=== PATIENT | female | born 1970 | race Caucasian/White ===

== ENCOUNTER → 2016-03-02 | Outpatient (CLI) | payer OTHER ==
[~2016-03-02] MED LIST: HYDR-757 PO; LITH300C PO; LORA0.5T PO; TRIA0.2581 PO; ZOLP10TA5 PO
--- OUTSIDE RECORDS SUMMARY | 2016-03-02 12:11 | XMS REPORT | Continuity of Care Document ---
Author Author [facility] Organization [facility] Address Unknown Phone Unavailable Care Team Providers [facility] Interpretive Ranger Name Role Phone No Pcp, Na PCP Unavailable Source Comments Some departments are not documenting in the electronic medical record. If you do not see the information that you expected, contact Release of Information in the Health Information Management department at [phone] for further assistance in locating additional records.[facility] Active Allergies and Adverse Reactions No Known Allergies Current Medications Prescription Sig. Disp. Refills Start End Date Status Date pravastatin (PRAVACHOL) Take 40 mg by mouth Active 40 mg tablet daily. levothyroxine (SYNTHROID) Take 25 mcg by mouth Active 25 mcg tablet daily. docusate (COLACE) 100 mg Take 100 mg by mouth Active capsule twice daily. FLUoxetine (PROZAC) 20 mg Take 20 mg by mouth Active capsule daily. gabapentin (NEURONTIN) Take 400 mg by mouth four Active 400 mg capsule times daily. gemfibrozil (LOPID) 600 Take 600 mg by mouth Active mg tablet daily. lithium carbonate SR Take 900 mg by mouth at Active (LITHOBID) 450 mg tablet bedtime daily. lurasidone 120 mg tab Take by mouth at bedtime Active daily. methocarbamol (ROBAXIN) Take 750 mg by mouth Active 750 mg tablet three times daily as needed. vitamins, multiple cap Take 1 Cap by mouth Active daily. omeprazole DR(+) Take 20 mg by mouth twice Active (PRILOSEC) 20 mg capsule daily. propranolol (INDERAL) 10 Take 10 mg by mouth twice Active mg tablet daily. traZODone (DESYREL) 100 Take 100 mg by mouth at Active mg tablet bedtime daily. zolpidem (AMBIEN) 10 mg Take 10 mg by mouth at Active tablet bedtime as needed. amLODIPine (NORVASC) 10 Take 10 mg by mouth Active mg tablet daily. HYDROcodone-acetaminophen Take 1 Tab by mouth every Active (+) (VICODIN) 10-325 mg 6 hours as needed. tablet ASPIRIN PO Take 81 mg by mouth Active daily. coQ10 (ubiquinol) 100 mg Take by mouth daily. Active cap fish oil /omega-3 fatty Take 1 Cap by mouth Active acids (SEA-OMEGA) daily. 340/1000 mg capsule Active Problems Problem Noted Date Multiple thyroid nodules 04/02/2014 Hypercalcemia 12/03/2013 Hyperparathyroidism (HCC) 12/03/2013 Social History Tobacco Use Types Packs/Day Years Used Date Current Every Day Smoker Cigarettes 1 30 Smokeless Tobacco: Never Used Tobacco Cessation: Ready to Quit: Yes; Counseling Given: Yes Comments: Counseling given 12.03.13 Alcohol Use Drinks/Week oz/Week Comments No Last Filed Vital Signs Vital Sign Reading Time Taken Blood Pressure 100/68 05/27/2014 10:02 AM CDT Pulse 74 05/27/2014 10:02 AM CDT Temperature 37.2 C (99 F) 04/05/2014 11:02 AM PAPER SAMPLE CLERK Respiratory Rate - - Height 1.664 m (5' 5.5") 05/27/2014 10:02 AM CDT Weight 73.483 kg (162 lb) 05/27/2014 10:02 AM CDT Body Mass Index 26.54 05/27/2014 10:02 AM CDT Oxygen Saturation 94% 04/05/2014 12:45 PM PAPER SAMPLE CLERK Plan of Care Health Maintenance Due Date Last Done Comments Physical (Comprehensive) 12/21/1975 Exam Pertussis Vaccine 12/21/1979 Tetanus Vaccine 1985 Cervical Cancer Screening 1989 Breast Cancer Screening 2008 Influenza Vaccine 10/30/2015 Results from Last 3 Months Not on file
--- NOTE | 2016-03-03 19:29 | Diagnostic Imaging Report ---
Bilateral screening mammogram The current study was also evaluated with a Computer Aided Detection (CAD) system. Indication: Screening. No current complaints stated on the questionnaire. COMPARISON: 12/13/14. FINDINGS: The breasts are composed of scattered fibroglandular densities. There are scattered benign-appearing calcifications. Allowing for technique and positional differences, no suspicious change is seen. IMPRESSION: No significant change. ACR BI-RADS Category 2: Benign findings. Result letter will be mailed to the patient. Note: At least 10% of breast cancer is not imaged by mammography. Dictated by: Dictated on workstation # [id number]
== END ==
LOC: RAD 12:08
PROVIDERS: ATTEND Nurse Practitioner
DX: Z12.31 Encounter for screening mammogram for malignant neoplasm of breast (principal)

== ENCOUNTER → 2017-03-04 | Outpatient (CLI) | payer OTHER ==
--- NOTE | 2017-03-07 09:34 | Diagnostic Imaging Report ---
INDICATION: Screening. COMPARISON: 03/02/2016, 12/13/2014, and 03/12/2014. TECHNIQUE: Screening digital mammography was performed bilaterally with a Computer Aided Detection (CAD) system. FINDINGS: There is a moderate amount of residual fibroglandular tissue bilaterally. There is an unchanged nodular density in the upper outer right breast. There is also a lymph node in the left axilla. There are scattered fibroglandular densities. There is no new dominant mass, spiculated lesion, or suspicious calcification identified. The skin, nipples, and axillae are unremarkable. IMPRESSION: Benign findings. ACR BI-RADS Category 2: Benign findings. Result letter will be mailed to the patient. Note: At least 10% of breast cancer is not imaged by mammography. Dictated by: Dictated on workstation # [id number]
== END ==
LOC: RAD 13:15
PROVIDERS: ATTEND Nurse Practitioner
DX: Z12.31 Encounter for screening mammogram for malignant neoplasm of breast (principal)
CPT/HCPCS: 77067

== ENCOUNTER 2017-08-03 09:00 | Emergency (ER) | payer OTHER ==
[~2017-08-03] VITALS: Ht 165.1 cm; Wt 64.9 kg
--- OUTSIDE RECORDS SUMMARY | 2017-08-03 09:06 | XMS REPORT | Clinical Summary ---
Author Author [facility] Organization [facility] Address Unknown Phone Unavailable Care Team Providers [employer] Susp[employer] Aide Name Role Phone Abigail Starr MD Unavailable Joseph Mederos PA-C Unavailable No Pcp, Na PCP Unavailable Petra Goodman RN Unavailable Unavailable Kerri Puente RN Unavailable Unavailable Iza Finnegan RN Unavailable Unavailable Source Comments Some departments are not documenting in the electronic medical record. If you do not see the information that you expected, contact Release of Information in the Health Information Management department at [phone] for further assistance in locating additional records.[facility] Allergies No Known Allergies Current Medications Prescription Sig. [...] nodules 04/02/2014 Hypercalcemia 12/03/2013 Hyperparathyroidism (HCC) 12/03/2013 Family History Medical History Relation Name Comments Cancer-Colon Mother Cancer-Ovarian Mother Heart Attack Mother High Cholesterol Mother Relation Name Status Comments Brother Alive Brother Alive Father Mother Sister Alive Social History Tobacco Use Types Packs/Day Years Used Date Current Every Day Smoker Cigarettes 1 30 Smokeless Tobacco: Never Used Tobacco Cessation: Ready to Quit: Yes; Counseling Given: Yes Comments: Counseling given 10.6.14 Alcohol Use Drinks/Week oz/Week Comments No Sex Assigned at Date Recorded Not on file Last Filed Vital Signs Vital Sign Reading Time Taken Blood Pressure 100/68 05/27/2014 10:02 AM CDT Pulse 74 05/27/2014 10:02 AM CDT Temperature 37.2 C (99 F) 04/05/2014 11:02 AM HOT PATCHER Respiratory Rate - - Oxygen Saturation 94% 04/05/2014 12:45 PM HOT PATCHER Inhaled Oxygen - - Concentration Weight 73.5 kg (162 lb) 05/27/2014 10:02 AM CDT Height 166.4 cm (5' 5.5") 05/27/2014 10:02 AM CDT Body Mass Index 26.55 05/27/2014 10:02 AM CDT Plan of Treatment Health Maintenance Due Date Last Done Comments PHYSICAL (COMPREHENSIVE) 12/21/1975 EXAM PERTUSSIS VACCINE 12/21/1979 HIV SCREENING 12/21/1983 TETANUS VACCINE 1985 CERVICAL CANCER SCREENING 1998 BREAST CANCER SCREENING 2008 INFLUENZA VACCINE 11/28/2017 Results Not on filefrom Last 3 Months
[2017-08-03] MEDS ORDERED: NS 250 ML (IVPB) BAG IV ONE (09:45)
[2017-08-03] MEDS ORDERED: IOHEXOL 350 MG/ML 100 ML (OMNIPAQUE 350) VIAL IV ONE (09:45)
[2017-08-03 09:59] LABS: BASOPHILS % (AUTO) 0 % (0-10); EOSINOPHILS # (AUTO) 0.2 10^3/uL (0.0-0.3); EOSINOPHILS % (AUTO) 2 % (0-10); HEMATOCRIT 40 % (35-52); HEMOGLOBIN 13.6 G/DL (11.5-16.0); LYMPHOCYTES # (AUTO) 1.9 X 10^3 (1.0-4.0); LYMPHOCYTES % (AUTO) 19 % (12-44); MEAN CORPUSCULAR HEMOGLOBIN 31 PG (25-34); MEAN CORPUSCULAR HGB CONC 34 G/DL (32-36); MEAN CORPUSCULAR VOLUME 91 FL (80-99); MEAN PLATELET VOLUME 10.3 FL (7.4-10.4); MONOCYTES # (AUTO) 0.7 X 10^3 (0.0-1.0); MONOCYTES % (AUTO) 8 % (0-12); NEUTROPHILS % (AUTO) 71 % (42-75); PLATELET COUNT 245 10^3/uL (130-400); WHITE BLOOD COUNT 9.9 10^3/uL (4.3-11.0)
[2017-08-03] MEDS ORDERED: fentaNYL INJECTION 100 MCG/2 ML AMP IVP ONE (10:00)
[2017-08-03 10:16] LABS: ALBUMIN 4.3 GM/DL (3.2-4.5); BILIRUBIN,TOTAL 0.2 MG/DL (0.1-1.0); CALCIUM 10.5 MG/DL (8.5-10.1); CREATININE SERUM 1.03 MG/DL (0.60-1.30); POTASSIUM 4.6 MMOL/L (3.6-5.0); TOTAL PROTEIN 7.1 GM/DL (6.4-8.2)
[2017-08-03 10:39] LABS: TSH (THYROID ANALYZER) 1.22 UIU/ML (0.35-4.94)
[2017-08-03 11:11] VITALS: BP 120/85
--- NOTE | 2017-08-03 11:23 | Diagnostic Imaging Report ---
PROCEDURE: CT angiography of the head with and without contrast. TECHNIQUE: Noncontrast CT of the head was obtained. Subsequently, after intravenous administration of contrast, thin section axial CT angiography of the head was performed. Source data was reformatted into multiple MIP reformats. Delayed postcontrast acquisition of the head was also acquired. INDICATION: Right-sided headache. The previous CT head exam performed on 10/06/2014 failed to show any sign of an acute intracranial abnormality. On the pre-intravenous contrast series of this exam there is no mass, shift of midline or hemorrhage to suggest an acute abnormality. The ventricles are not abnormally dilated and stable in size when compare to the prior study. The bone windows show no evidence for a fracture or for a destructive lesion. The orbits are symmetrical and within normal limits. The sinuses where visualized are clear. On the postcontrast images there is no evidence for an aneurysm of the [place]. There is no defect within the intracranial arterial circulation to suggest a thrombus either. There is no sign of a hemodynamically significant stenosis. There is no abnormal enhancement to suggest neoplastic or infectious process either. Impression: 1. There is no evidence for an acute intracranial abnormality. 2. There is no sign of an aneurysm of the [place] and there is no defect within the intracranial arterial circulation to indicate a thrombus. 3. There is no abnormal enhancement to suggest neoplastic or infectious process. 4. If clinical concern regarding an underlying abnormality persists, then MRI would be recommended for further study. These results were discussed with Addison Brothers APRN in the ER. Dictated by: Dictated on workstation # [id number]
--- NOTE | 2017-08-03 12:18 | ED Headache ---
General Chief Complaint: Head/Cervical Problems Stated Complaint: MIGRAINE Nursing Triage Note: TO ROOM C/O HEADACHE ONSET ON SAT WENT AWAY ON TUESDAY BACK TODAY AFTER HAVING BM Nursing Sepsis Screen: No Definite Risk Source: patient Exam Limitations: no limitations History of Present Illness Date Seen by Provider: Aug 03, 2017 Time Seen by Provider: 09:14 Initial Comments This 46-year-old woman presents to emergency room with primary complaint of intense right sided sharp headache. This pain started on July 30 during intercourse. The pain continued for the next 2 days. By August 01 the pain had resolved. Pain returned this morning while straining to have a bowel movement. Pain seems to be worse with exertion or increased abdominal pressure. She denies any vision change. She has vomited times one related to the headache. She has a history of hypertension and has an elevated diastolic pressure at present. She previously took antihypertensives but stopped medication after losing a significant amount of weight. She tried taking her 's sumatriptan for this headache which was not effective. She reports her pain was a 10 on the pain scale when it first started. She reports 6 out of 10 pain today. Patient denies any recent alcohol use. She does smoke marijuana daily. She has no history of headaches or migraine. Patient denies any focal neurologic deficits. Allergies and Home Medications Allergies Coded Allergies: No Known Drug Allergies (Unverified , 10/06/14) Home Medications Hydrocodone/Acetaminophen 1 Each Tablet, 1 EACH PO Q4H PRN for PAIN Prescribed by: BELEM BROTHERS on 10/06/14 [address] [place] Carbonate 300 Mg Capsule, 300 MG PO DAILY, (Reported) Lorazepam 0.5 Mg Tablet, 0.5 MG PO QID PRN for ANXIETY, (Reported) Zolpidem Tartrate 10 Mg Tablet, 10 MG PO HS, (Reported) Patient Home Medication List Home Medication List Reviewed: Yes Review of Systems Constitutional: no symptoms reported Eyes: No Symptoms Reported Ears, Nose, Mouth, Throat: no symptoms reported Respiratory: no symptoms reported Cardiovascular: see HPI Gastrointestinal: no symptoms reported Genitourinary: no symptoms reported : No Musculoskeletal: no symptoms reported Skin: no symptoms reported Psychiatric/Neurological: See HPI Past Ecuarrr-Oqkfjq-Rquluo Hx Past Med/Social Hx: Reviewed and Corrections made Patient Social History Alcohol Use: Denies Use Recreational Drug Use: No Smoking Status: Never a Smoker Recent Foreign Travel: No Contact w/Someone Who Travel: No Recent Infectious Disease Expo: No Past Medical History Surgeries: Yes Appendectomy, Hysterectomy Respiratory: Yes Asthma Cardiac: Yes Hypertension (prior history but not currently treated) Neurological: No : No Reproductive Disorders: No Genitourinary: No Gastrointestinal: No Musculoskeletal: No Endocrine: No HEENT: No Cancer: No Psychosocial: Yes Anxiety, PTSD, Suicide Attempts, Bipolar, Depression Family Medical History Reviewed Nursing Family Hx No Pertinent Family Hx Physical Exam Vital Signs Vital Signs - First Documented 08/03/17 09:30 Temp 97.8 Pulse 82 Resp 18 B/P (MAP) 127/101 (110) Pulse Ox 97 O2 Delivery Room Air Capillary Refill : Less Than 3 Seconds General Appearance: WD/WN, no apparent distress HEENT: PERRL/EOMI, normal ENT inspection, TMs normal, pharynx normal Neck: normal inspection Cardiovascular: regular rate, rhythm, no edema, no murmur Respiratory: lungs clear, normal breath sounds, no respiratory distress, no accessory muscle use Gastrointestinal: normal bowel sounds, non tender, soft Extremities: normal inspection, no pedal edema Psychiatric: alert, oriented x 3 Crainal Nerves: normal hearing, normal speech, PERRL Coordination/Gait: normal finger to nose, normal gait Motor/Sensory: no motor deficit, no sensory deficit Skin: normal color, warm/dry Progress/Results/Core Measures Results/Orders Lab Results Laboratory Tests Test 08/03/17 09:50 Range/Units White Blood Count 9.9 4.3-11.0 10^3/uL Red Blood Count 4.40 4.35-5.85 10^6/uL Hemoglobin 13.6 11.5-16.0 G/DL Hematocrit 40 35-52 % Mean Corpuscular Volume 91 80-99 FL Mean Corpuscular Hemoglobin 31 25-34 PG Mean Corpuscular Hemoglobin Concent 34 32-36 G/DL Red Cell Distribution Width 14.0 10.0-14.5 % Platelet Count 245 130-400 10^3/uL Mean Platelet Volume 10.3 7.4-10.4 FL Neutrophils (%) (Auto) 71 42-75 % Lymphocytes (%) (Auto) 19 12-44 % Monocytes (%) (Auto) 8 0-12 % Eosinophils (%) (Auto) 2 0-10 % Basophils (%) (Auto) 0 0-10 % Neutrophils # (Auto) 7.0 1.8-7.8 X 10^3 Lymphocytes # (Auto) 1.9 1.0-4.0 X 10^3 Monocytes # (Auto) 0.7 0.0-1.0 X 10^3 Eosinophils # (Auto) 0.2 0.0-0.3 10^3/uL Basophils # (Auto) 0.0 0.0-0.1 10^3/uL Sodium Level 139 135-145 MMOL/L Potassium Level 4.6 3.6-5.0 MMOL/L Chloride Level 109 H 98-107 MMOL/L Carbon Dioxide Level 25 21-32 MMOL/L Anion Gap 5 5-14 MMOL/L Blood Urea Nitrogen 19 H 7-18 MG/DL Creatinine 1.03 0.60-1.30 MG/DL Estimat Glomerular Filtration Rate 57 BUN/Creatinine Ratio 18 Glucose Level 93 70-105 MG/DL Calcium Level 10.5 H 8.5-10.1 MG/DL Total Bilirubin 0.2 0.1-1.0 MG/DL Aspartate Amino Transf (AST/SGOT) 15 5-34 U/L Alanine Aminotransferase (ALT/SGPT) 20 0-55 U/L Alkaline Phosphatase 65 40-136 U/L Total Protein 7.1 6.4-8.2 GM/DL Albumin 4.3 3.2-4.5 GM/DL TSH Secor Testing 1.22 0.35-4.94 UIU/ML My Orders Orders - CECILY ALVES MD Saline Lock/Iv-Start (08/03/17 09:35) Cbc With Automated Diff (08/03/17 09:35) Comprehensive Metabolic Panel (08/03/17 09:35) Thyroid Analyzer (08/03/17 09:35) Iohexol Injection (Omnipaque 350 Mg/Ml 1 (08/03/17 09:45) Di Iv Start (Assessment) .on IV start (08/03/17 09:43) Ns (Ivpb) (Sodium Chloride 0.9%) (08/03/17 09:45) Pharmacy Communication (Pharmacy Communi (08/03/17 09:43) Ct Angio Head W Wo (08/03/17 09:43) Fentanyl Injection (Sublimaze Injection (08/03/17 10:00) Ketorolac Injection (Toradol Injection) (08/03/17 12:30) Medications Given in ED Vital Signs/I&O 08/03/17 08/03/17 08/03/17 09:30 11:11 12:29 Temp 97.8 Pulse 82 72 Resp 18 18 B/P (MAP) 127/101 (110) 120/85 (97) 126/77 Pulse Ox 97 98 O2 Delivery Room Air Blood Pressure Mean: 97 Progress Progress Note : Progress Note Patient's pain was initially treated with fentanyl. This seemed to improve her pain and her blood pressure. Because of the unusual nature of sudden onset of headache syndrome at age 46, CT scan was offered to the patient to rule out vascular pathology, mass, etc. Patient agreed and requested the CT angiogram. CT angiogram revealed no pathology to explain her pain. Pain started to rebound and was further treated with Toradol. Discharge instructions reviewed with patient. Diagnostic Imaging Diagonstic Imaging: CT Plain Films/CT/US/NM/MRI: head Comments CT angiogram of the head viewed by me and report reviewed. See report below: NAME: NATY PRITCHETT [facility] REC#: [id number] PT STATUS: DEP ER : 1970 PHYSICIAN: CECILY ALVES MD ADMIT DATE: 08/03/17/ER Signed Date of Exam: 08/03/17 CT ANGIO HEAD W WO PROCEDURE: CT angiography of the head with and without contrast. TECHNIQUE: Noncontrast CT of the head was obtained. Subsequently, after intravenous administration of contrast, thin section axial CT angiography of the head was performed. Source data was reformatted into multiple MIP reformats. Delayed postcontrast acquisition of the head was also acquired. INDICATION: Right-sided headache. The previous CT head exam performed on 10/06/2014 failed to show any sign of an acute intracranial abnormality. On the pre-intravenous contrast series of this exam there is no mass, shift of midline or hemorrhage to suggest an acute abnormality. The ventricles are not abnormally dilated and stable in size when compare to the prior study. The bone windows show no evidence for a fracture or for a destructive lesion. The orbits are symmetrical and within normal limits. The sinuses where visualized are clear. On the postcontrast images there is no evidence for an aneurysm of the [place]. There is no defect within the intracranial arterial circulation to suggest a thrombus either. There is no sign of a hemodynamically significant stenosis. There is no abnormal enhancement to suggest neoplastic or infectious process either. Impression: 1. There is no evidence for an acute intracranial abnormality. 2. There is no sign of an aneurysm of the [place] and there is no defect within the intracranial arterial circulation to indicate a thrombus. 3. There is no abnormal enhancement to suggest neoplastic or infectious process. 4. If clinical concern regarding an underlying abnormality persists, then MRI would be recommended for further study. These results were discussed with Belem Brothers APRN in the ER. Dictated by: Dictated on workstation # [id number] Dict: 08/03/17 1110 Trans: 08/03/17 1710 Interpreted by: GREG GOTTI MD Electronically signed by: GREG GOTTI MD 08/03/17 1710 Departure Impression Primary Impression: Acute headache Qualified Codes: R51 - Headache Disposition: 01 HOME, SELF-CARE Condition: Improved Departure-Patient Inst. Decision time for Depature: 12:05 Referrals: CHANDU NORTH (PCP) Primary Care Physician NO,LOCAL PHYSICIAN (Family) Primary Care Physician Patient Instructions: Headache, Adult (DC) Add. Discharge Instructions: Drink plenty of clear liquids to stay well-hydrated. You may take ibuprofen up to 600 mg every 6 hours as needed for pain. Add Tylenol (acetaminophen) up to 1000 mg every 6 hours as needed for additional pain relief. Please follow-up with your primary care provider as soon as possible. Monitor your blood pressure as your diastolic blood pressure was high in the emergency room. Return to the emergency room if you have worsening symptoms. All discharge instructions reviewed with patient and/or family. Voiced understanding. CECILY ALVES MD Aug 03, 2017 12:18
[2017-08-03 12:29] VITALS: BP 126/77
[2017-08-03] MEDS ORDERED: KETOROLAC 30 MG/ML VIAL IVP ONE (12:30)
== END 2017-08-03 12:29 | disposition home or self-care (01) ==
LOC: EDUNIT# 09:00 → ER 09:02
DX: R51 Headache (principal); J45.909 Unspecified asthma, uncomplicated; F41.9 Anxiety disorder, unspecified; F43.10 Post-traumatic stress disorder, unspecified; F31.9 Bipolar disorder, unspecified; Z91.5 Personal history of self-harm; Z90.49 Acquired absence of other specified parts of digestive tract; Z90.710 Acquired absence of both cervix and uterus
CPT/HCPCS: 36415; 70496; 80053; 84443; 85025; 96374; 96375

== ENCOUNTER → 2018-03-21 | Outpatient (CLI) | payer OTHER ==
[~2018-03-21] MED LIST changes: +HYDR-4226 PO; -HYDR-757 PO
--- NOTE | 2018-03-21 13:23 | Diagnostic Imaging Report ---
INDICATION: Routine screening. COMPARISON: 03/04/2017 and 03/02/2016. TECHNIQUE: 2D and 3D bilateral screening mammography was performed with CAD. FINDINGS: Scattered fibroglandular densities are identified bilaterally. An intraparenchymal lymph node in the outer right breast appears stable. No spiculated mass or malignant appearing microcalcifications are seen. The axillae are unremarkable. IMPRESSION: No mammographic features suspicious for malignancy are identified. ACR BI-RADS Category 2: Benign findings. Result letter will be mailed to the patient. Note: At least 10% of breast cancer is not imaged by mammography. Dictated by: Dictated on workstation # [id number]
== END ==
LOC: RAD 08:37
PROVIDERS: ATTEND Nurse Practitioner
DX: Z12.31 Encounter for screening mammogram for malignant neoplasm of breast (principal)
CPT/HCPCS: 77067